=== PATIENT | male | born 1975 | race African-American/Black ===

== ENCOUNTER 2021-11-28 17:00 | Emergency (ER) | payer SELFPAY ==
[~2021-11-28] VITALS: Ht 170.2 cm; Wt 90.0 kg
[2021-11-28 17:04] VITALS: BP 116/67
[2021-11-28] MEDS ORDERED: DEPRESSION (17:15)
[2021-11-28] MEDS ORDERED: KEFLEX500 MG PO (18:08)
[2021-11-28 18:15] VITALS: BP 112/65
== END 2021-11-28 18:21 | disposition home or self-care (01) | DRG 605 ==
LOC: ED 17:00
DX: S00.03XA Contusion of scalp, initial encounter (principal); S00.83XA Contusion of other part of head, initial encounter; S00.511A Abrasion of lip, initial encounter; Y04.0XXA Assault by unarmed brawl or fight, initial encounter; Y92.410 Unspecified street and highway as the place of occurrence of the external cause

== ENCOUNTER 2022-08-02 22:55 | Emergency (ER) | payer SELFPAY ==
[~2022-08-02] VITALS: Ht 170.2 cm; Wt 85.0 kg
[~2022-08-02 22:55] MED LIST: DEPRESSION; KEFLEX500 MG PO
[2022-08-02 23:15] VITALS: BP 119/82
[2022-08-02 23:30] VITALS: BP 116/83
[2022-08-02 23:45] VITALS: BP 117/84
[2022-08-03] VITALS (7 sets, daily range): BP systolic 105–133; BP diastolic 80–99
[2022-08-03] MEDS ORDERED: ORPHENADRINE100 MG PO (00:51)
[2022-08-03] MEDS ORDERED: VOLTAREN75 MG PO (00:51)
== END 2022-08-03 01:31 | disposition home or self-care (01) | DRG 556 ==
LOC: ED 22:55
DX: M79.604 Pain in right leg (principal)